=== PATIENT | female | born 1995 | race Caucasian/White ===

== ENCOUNTER 2020-01-14 03:44 | Observation (INO) | payer BC ==
[2020-01-14] MEDS ORDERED: NS 0.9% 1000 ML** 1,000 ML IV ONE (04:00)
[2020-01-14] MEDS ORDERED: Ondansetron INJ* 2 MG/ML VIAL IV ONE (04:00)
[2020-01-14] MEDS ORDERED: Ketorolac INJ* 30 MG/ML 1 ML VIAL IV PUSH ONE (04:00)
--- NOTE | 2020-01-14 04:12 | ED ---
Abdominal Pain/Female - HPI Summary HPI Summary: Patient is a 24 year-old female presenting to [facility] with a chief complaint of RUQ pain initially onset 11 months ago and worsening over the last few days. She reports she began having gallbladder issues after her son was born almost a year ago. Over the course of her pain, she was diagnosed with anxiety attacks and GERD, which she has been placed on medications for without relief of her pain. After it was found that she has gallbladder issues, she has continued to have worsening attacks. She was initially scheduled to have a cholecystectomy on 01/09/2020, but the surgery was canceled due to the pandemic. On 01/12/2020, she went to [facility] and had an ultrasound but was discharged home. She previously had a CT. She returned to the hospital the following day and was admitted for pain control. She left AMA after feeling like she was mistreated, and there was no plan for surgery. This morning, she comes to the ED for worsening pain radiating into the back, nausea, vomiting, and decreased oral intake. She denies any fevers. Pain is rated 8/10 in severity. She has not taken any pain medications for treatment. LNMP: beginning of December 2019. Nonsmoker, rare EtOH, no substance use. Medications reviewed. Allergies noted. Obtained medical records from [place]: Abdominal U/S - Cholelithiasis. - History of Current Complaint Chief Complaint: EDAbdPain Stated Complaint: ABD/FLANK PAIN PER PT Time Seen by Provider: 01/14/20 03:59 Hx Obtained From: Patient Hx Last Menstrual Period: beginning of December 2019 Onset/Duration: Lasting Weeks, Still Present, Worse Since - last few days Timing: Constant Severity Initially: Mild Severity Currently: Severe Pain Intensity: 8 Pain Scale Used: 0-10 Numeric Location: Discrete At: RUQ Radiates: Yes Radiates to: Back Character: Sharp Aggravating Factor(s): Food Alleviating Factor(s): NPO Associated Signs and Symptoms: Positive: Decreased Appetite, Nausea, Vomiting. Negative: Fever Allergies/Adverse Reactions: Allergies Allergy/AdvReac Type Severity Reaction Status Date / Time Penicillins Allergy Unknown Verified 01/14/20 11:08 Reaction Details Home Medications: Home Medications Omeprazole 40 mg PO BID 01/14/20 [History Confirmed 01/14/20] Xanax TAB* 0.25 mg PO TID PRN 01/14/20 [History Confirmed 01/14/20] PMH/Surg Hx/FS Hx/Imm Hx Endocrine/Hematology History: Denies: Hx Diabetes Respiratory History: Denies: Hx Asthma GI History: Reports: Hx Gall Bladder Disease, Hx Gastroesophageal Reflux Disease Neurological History: Reports: Hx Migraine Psychiatric History: Reports: Hx Anxiety - Surgical History Surgical History: None Surgery Procedure, Year, and Place: none Infectious Disease History: No Infectious Disease History: Denies: Traveled Outside the [place] in Last 30 Days - Family History Known Family History: Positive: Renal Disease - kidney cancer, Other - POsitive FMH of hypotension - Social History Alcohol Use: Rare Hx Substance Use: No Substance Use Type: Reports: None Hx Tobacco Use: No Smoking Status (MU): Never Smoked Tobacco - Additional Comments History Additional Comments: GERD, anxiety Review of Systems - ROS Summary Review of Systems Summary: Home Medications Medication Instructions Recorded Confirmed Type Ibuprofen TAB* [Motrin TAB* 800 MG] 800 mg PO Q8H PRN #30 tab 09/28/16 Rx Otc Sinus Tab 2 tab PO ONCE PRN 09/28/16 09/28/16 History Negative: Fever Positive: Abdominal Pain - RUQ, Vomiting, Nausea, Other - decreased oral intake All Other Systems Reviewed And Are Negative: Yes Physical Exam - Summary Physical Exam Summary: General: Well-developed, Well-nourished female. Mildly anxious appearing. No acute distress. HEENT: Normocephalic, Atraumatic. Eyes: Conjuctiva normal, PERRL. Oropharynx: Clear, mucous membranes moist, (-) exudates. Neck: Soft, FROM, (-) lymphadenopathy, (-) thyromegaly, (-) JVD. Cardiovascular: Normal sinus rhythm, (-) murmur. Lungs: Clear to auscultation bilaterally (-) wheezes, (-) rales, (-) rhonchi. Abdomen: Soft, mild RUQ and right lateral tenderness, non-distended, (-) organomegaly, normal bowel sounds. Back: (-) CVA tenderness Extremities: No edema. Skin: Warm, dry, (-) rash. Neuro: Alert and oriented x3, moves all extremities equally. No ataxia. No gait disturbance. No sensory deficit. Normal strength, normal sensation. Psychiatric: Mood normal, affect normal. Triage Information Reviewed: Yes Vital Signs On Initial Exam: Initial Vitals Temp Pulse Resp BP Pulse Ox 98.7 F 83 16 103/62 97 01/14/20 03:45 01/14/20 03:45 01/14/20 03:45 01/14/20 03:45 01/14/20 03:45 Vital Signs Reviewed: Yes Procedures - Sedation Patient Received Moderate/Deep Sedation with Procedure: No Diagnostics - Vital Signs Vital Signs Temp Pulse Resp BP Pulse Ox 01/14/20 03:45 98.7 F 83 16 103/62 97 - Laboratory Result Diagrams: 01/14/20 04:11 01/14/20 04:11 Lab Statement: Any lab studies that have been ordered have been reviewed, and results considered in the medical decision making process. Re-Evaluation - Re-Evaluation First Eval Re-Evaluation Time: 07:35 Comment: Patient is resting comfortably. Ultrasound being done. Patient is hemodyamically stable. Abdominal Pain Fem Course/Dx - Course Course Of Treatment: 24-year-old female presents from home with abdominal pain. Patient states over the last 11 months since she had her son that she has been experiencing gallbladder attacks. She states she's been seen at [place] [facility] numerous times. Has had surgery set up for January 07 but it had to be canceled because of elective surgeries were put on hold at this time due to Covid pandemic. Patient states every time she gets an attack it is worse. She went to [facility] Wednesday morning and then again Wednesday morning. She was hospitalized at that time but states all they did was put on a clear liquid diet and give her every day pain medication. She states her pain is unbearable and she is not able to take it anymore. At home she is taking Tylenol ibuprofen without relief. Also having nausea and vomiting. No fevers or chills. No diarrhea. On physical exam she is afebrile with right upper and right lateral abdominal tenderness. Laboratories have no significant abnormalities. Patient was ordered for a CT abdomen and pelvis. However she states that she had 2 negative CTs done already for this same problem. Patient is signed out at change of shift awaiting ultrasound. Patient received fluids, Zofran, and Toradol in the ED. - Diagnoses Provider Diagnoses: Abdominal pain, RUQ, Cholecystitis Discharge ED - Sign-Out/Discharge Documenting (check all that apply): Sign-Out Patient Signing out patient TO: Aime Monteiro - Patient is a sign-out to Dr. Aime Monteiro MD, at change of shift at 0700 on 01/14/20, pending Abdominal US and disposition. - Discharge Plan Condition: Stable Disposition: ADMITTED TO [facility] - Billing Disposition and Condition Condition: STABLE Disposition: Admitted to [facility] - Attestation Statements Document Initiated by Scribe: Yes Documenting Scribe: Evelyn Perez Provider For Whom Jose is Documenting (Include Credential): Jenna Keen MD Scribe Attestation: IEvelyn, scribed for Jenna Keen MD on 01/14/20 at 2006. Scribe Documentation Reviewed: Yes Provider Attestation: The documentation as recorded by the Evelyn lee accurately reflects the service I personally performed and the decisions made by me, Jenna Keen MD Status of Scribe Document: Viewed
[2020-01-14 04:21] LABS: ABS Eosinophils 0.1 10^3/ul (0-0.6); ABS Lymphocytes 1.1 10^3/ul (1.0-4.8); ABS Monocytes 0.7 10^3/ul (0-0.8); ABS Neutrophils 6.5 10^3/ul (1.5-7.7); Eosinophil % 1.6 %; Hematocrit 40 % (35-47); Hemoglobin 13.4 g/dL (12.0-16.0); Lymphocyte % 12.6 %; Mean Corpuscular HGB Conc 34 g/dL (31-36); Mean Corpuscular Hemoglobin 30 pg (27-31); Mean Corpuscular Volume 88 fL (80-97); Mean Platelet Volume 7.7 fL (7.4-10.4); Platelet Count 225 10^3/uL (150-450); Red Blood Count 4.51 10^6 /uL (3.70-4.87); Red Cell Distribution Width 13 % (10-15); White Blood Count 8.4 10^3/uL (3.5-10.8)
[2020-01-14 04:27] LABS: INR 1.17 (0.82-1.09)
[2020-01-14 04:36] LABS: ALT 10 U/L (7-52); AST 11 U/L (13-39); Albumin/Globulin Ratio 1.3 (1-3); Alkaline Phosphatase 61 U/L (34-104); Amylase 32 U/L (29-103); Anion Gap 5 mmol/L (2-11); BUN/Creatinine Ratio 11.4 (8-20); Blood Urea Nitrogen 8 mg/dL (6-24); C Reactive Protein 63.33 mg/L (<8.01); CO2 Carbon Dioxide 26 mmol/L (22-32); Calcium 8.8 mg/dL (8.6-10.3); Chloride 105 mmol/L (101-111); EGFR African American 124.4 (>60); EGFR Non-African American 102.8 (>60); Globulin 3.1 g/dL (2-4); Glucose 102 mg/dL (70-100); Potassium 3.7 mmol/L (3.5-5.0); Sodium 136 mmol/L (135-145); Total Protein 7.1 g/dL (6.4-8.9)
[2020-01-14 04:42] LABS: HCG Pregnancy < 0.60 mIU/mL
--- NOTE | 2020-01-14 07:18 | ED ---
Progress - Progress Note Progress Note: Patient received as a sign out from Dr. Keen at 0700 shift change pending abd/ pel US and dispo. - Results/Orders Results/Orders: ABDOMEN US IMPRESSION: Cholelithiasis with mild gallbladder wall thickening. Small amount of pericholecystic fluid is noted. The gallbladder is not abnormally distended however. This report was reviewed by the ED physician. Re-Evaluation - Re-Evaluation First Eval Re-Evaluation Time: 07:35 Comment: Patient is resting comfortably. Ultrasound being done. Patient is hemodyamically stable. Course/Dx - Course Course Of Treatment: This patient was signed out to Dr. Keen at shift change. She recommends to follow up the right upper quadrant ultrasound to rule out cholecystitis. RUQ U/S IMPRESSION: Cholelithiasis with mild gallbladder wall thickening. Small amount of pericholecystic fluid is noted. The gallbladder is not abnormally distended. Patient seen and examined with Dr. Sarkar from surgery and she accepted the patient for admission for an acute cholecystitis. Patient is hemodynamically stable, alert and oriented 3. - Diagnoses Provider Diagnoses: Abdominal pain, RUQ, Cholecystitis - Provider Notifications Discussed Care Of Patient With: Emili Sarkar Time Discussed With Above Provider: 09:11 Instructed by Provider To: Other - Patient's case was discussed with Dr. Sarkar, who will see the patient in the ER. After seeing the patient at 1040, Dr. Sarkar recommended admission for cholecystitis. At 1141 Dr. Bessie Owen and Dr. Underwood were in the ER to see the patient and at 1151 confirmed that they will admit the patient. Discharge ED - Sign-Out/Discharge Documenting (check all that apply): Patient Departure - admit - Discharge Plan Condition: Stable Disposition: ADMITTED TO [facility] - Billing Disposition and Condition Condition: STABLE Disposition: Admitted to [facility] - Attestation Statements Document Initiated by Scribe: Yes Documenting Scribe: Maciej Munoz Provider For Whom Jose is Documenting (Include Credential): Aime Monteiro MD Scribe Attestation: Maciej Murrell, scribed for Aime Monteiro MD on 01/14/20 at 1844. Scribe Documentation Reviewed: Yes Provider Attestation: The documentation as recorded by the Maciej lee accurately reflects the service I personally performed and the decisions made by me, Aime Monteiro MD Status of Jose Document: Viewed
--- NOTE | 2020-01-14 10:41 | HP ---
H&P (Free Text) History and Physical: DATE OF ADMISSION: 01/14/20 REASON FOR ADMISSION: Acute cholecystitis PCP: Mary Brambila NP HPI: Ana Downing is a 24 year-old otherwise healthy woman who presents to the ED with abdominal pain. She has been having episodes of right upper quadrant abdominal pain for the past 10 months. There are no inciting factors, but she did feel the pain was less severe when she switched to a bland diet. She has been following a bland diet for about 7 months. She is asymptomatic between episodes, and the pain previously was alleviated with a heating pad. Her abdominal and chest pain were thought to be due to anxiety and GERD. She had been prescribed Xanax and omeprazole which do not help. This current episode started on Thursday 01/11. She has had RUQ abdominal pain radiating to her back and up into her chest. There is associated nausea and vomiting. She has had difficulty keeping down liquids due to pain. She thinks her symptoms might be slightly better compared to Wednesday. She denies fevers. She reports shortness of breath due to pain. The patient was scheduled for lap cholecystectomy in [place] last week, but surgery was cancelled due to the pandemic. She presented to [facility] yesterday. She was admitted but did not feel her symptoms were controlled and was not happy with her care. She came to [facility] early this morning because the pain was not controlled with hydrocodone at home. PMH: None PSH: None Home Medications Medication Instructions Recorded Confirmed Type Omeprazole 40 mg PO BID 01/14/20 01/14/20 History Xanax TAB* 0.25 mg PO TID PRN 01/14/20 01/14/20 History Allergies Penicillins Allergy (Verified 01/14/20 11:08) Unknown Reaction Details PT'S FATHER HAS STRONG ALLERGIC REACTION TO PCN HX FH: Both parents are healthy. No history of bleeding disorders in the family. She had a grandmother with kidney cancer. SH: Patient lives with her mother, grandfather, and infant son. 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 She denies tobacco, alcohol, or recreational drug use. ROS: 10-point review of systems was obtained. Pertinent positives and negatives are in HPI. PHYSICAL EXAM: Temp Pulse Resp BP Pulse Ox 98.7 F 75 16 110/62 98 01/14/20 03:45 01/14/20 11:00 01/14/20 03:45 01/14/20 10:38 01/14/20 11:00 General: NAD, lying on stretcher. Head: Normocephalic and atraumatic Eyes: Pupils equal and no scleral icterus. Mouth: Moist mucous membranes Neck: Supple, trachea midline CV: RRR Respiratory: CTA, no accessory muscle use on room air Abdomen: Soft, nondistended, tenderness to palpation RUQ and RLQ. No guarding or rebound. Extremities: Warm, no pedal edema Skin: Warm and dry. Intact. Neuro: Alert and oriented x3. Moves all extremities equally. Psych: Normal affect. Laboratory Results - last 24 hr 01/14/20 01/14/20 01/14/20 04:11 04:11 04:11 WBC 8.4 RBC 4.51 Hgb 13.4 Hct 40 MCV 88 MCH 30 MCHC 34 RDW 13 Plt Count 225 MPV 7.7 Neut % (Auto) 76.7 Lymph % (Auto) 12.6 [place] % (Auto) 8.9 Eos % (Auto) 1.6 Baso % (Auto) 0.2 Absolute Neuts (auto) 6.5 Absolute Lymphs (auto) 1.1 Absolute Monos (auto) 0.7 Absolute Eos (auto) 0.1 Absolute Basos (auto) 0.0 Absolute Nucleated RBC 0.0 Nucleated RBC % 0.0 INR (Anticoag Therapy) 1.17 H Sodium 136 Potassium 3.7 Chloride 105 Carbon Dioxide 26 Anion Gap 5 BUN 8 Creatinine 0.70 Est GFR ( Amer) 124.4 Est GFR (Non-Af Amer) 102.8 BUN/Creatinine Ratio 11.4 Glucose 102 H Lactic Acid Calcium 8.8 Total Bilirubin 0.60 AST 11 L ALT 10 Alkaline Phosphatase 61 C-Reactive Protein 63.33 H Total Protein 7.1 Albumin 4.0 Globulin 3.1 Albumin/Globulin Ratio 1.3 Amylase 32 Lipase 10 L Beta HCG, Quant < 0.60 01/14/20 04:11 WBC RBC Hgb Hct MCV MCH MCHC RDW Plt Count MPV Neut % (Auto) Lymph % (Auto) [place] % (Auto) Eos % (Auto) Baso % (Auto) Absolute Neuts (auto) Absolute Lymphs (auto) Absolute Monos (auto) Absolute Eos (auto) Absolute Basos (auto) Absolute Nucleated RBC Nucleated RBC % INR (Anticoag Therapy) Sodium Potassium Chloride Carbon Dioxide Anion Gap BUN Creatinine Est GFR ( Amer) Est GFR (Non-Af Amer) BUN/Creatinine Ratio Glucose Lactic Acid 0.6 Calcium Total Bilirubin AST ALT Alkaline Phosphatase C-Reactive Protein Total Protein Albumin Globulin Albumin/Globulin Ratio Amylase Lipase Beta HCG, Quant Abd U/S- Gallstones, small amount of pericholecystic fluid, wall is 5.4 mm. CBD 4 mm. IMPRESSION: 24F with acute cholecystitis. Gallbladder wall is thickened on ultrasound, and CRP is elevated. However, she does not have an elevated white count or fever. Differential includes symptomatic cholelithiasis or biliary colic. It appears that she has not been able to control the symptoms at home despite diet modification and narcotic pain medication. -Admit for observation -Start cipro and flagyl to treat for cholecystitis. -Plan for laparoscopic cholecystectomy tomorrow as add on. I explained to the patient that Dr West may be the surgeon depending on scheduling. -Clear liquids today, NPO and IVF at midnight. -Tylenol, percocet, morphine prn for pain. -DVT ppx: SCDs, activity as tolerated
[2020-01-14] MEDS ORDERED: Acetaminophen TAB* 325 MG PO PRN (10:46)
[2020-01-14] MEDS ORDERED: oxyCODONE/Acetamin 5/325 MG* TAB PO PRN (10:46)
[2020-01-14] MEDS ORDERED: Ondansetron INJ* 2 MG/ML VIAL IV PRN (10:46)
[2020-01-14] MEDS ORDERED: Morphine INJ* 2 MG/ML 1 ML SYRINGE (TWO MG - NEW SYRINGE VERSION) IV PRN (10:54)
[2020-01-14] MEDS: Ciprofloxacin 400MG IVPREMIX(* 400 MG/200 ML BAG IVPB SCH ×2 (12:01→23:37)
[2020-01-14 12:15] LABS: Urine Appearance Turbid; Urine Bilirubin Negative (Negative); Urine Blood 1+ (Negative); Urine Color Yellow; Urine Glucose Negative (Negative); Urine Ketones Negative (Negative); Urine Nitrite Negative (Negative); Urine Protein Negative (Negative); Urine Specific Gravity 1.013 (1.010-1.030); Urine Urobilinogen Negative (Negative)
[2020-01-14 12:17] LABS: Urine Bacteria Absent (Absent); Urine Red Blood Cell 2+(6-10/hpf) (Absent); Urine Squamous Epithelial Cell Present (Absent); Urine White Blood Cell 3+(>20/hpf) (Absent)
[2020-01-14] MEDS: metroNIDAZOLE IV 500 MG/100ML* 500 MG/100 ML BAG IVPB SCH ×2 (13:26→20:49)
[2020-01-15] MEDS: metroNIDAZOLE IV 500 MG/100ML* 500 MG/100 ML BAG IVPB SCH (04:41)
[2020-01-15] MEDS: Lactated Ringers 1000 ML Bag* 1,000 ML IV SCH ×2 (11:03)
[2020-01-15] MEDS: Ciprofloxacin 400MG IVPREMIX(* 400 MG/200 ML BAG IVPB SCH (11:04)
--- NOTE | 2020-01-15 12:08 | PN ---
Progress Note - Progress Note Date of Service: 01/15/20 SOAP: Subjective: Still with some RUQ abd pain No N/V Objective: Temp Pulse Resp BP Pulse Ox 98.2 F 72 20 99/59 100 01/15/20 11:09 01/15/20 11:09 01/15/20 11:09 01/15/20 11:09 01/15/20 11:09 Intake & Output 01/13/20 01/14/20 01/15/20 01/16/20 06:59 06:59 06:59 06:59 Intake Total 1000 1394 980 Output Total 1000 675 Balance 1000 394 305 Weight 140 lb 126 lb 6.4 oz Intake: IV Fluids 1000 215 980 LR 980 NS (0.9%) 15 IVPB 459 ABX - CIPROFLOXACIN 200 ABX - FLAGYL 100 ABX - LEVOFLOXACIN 159 Oral 720 Output: Urine 1000 675 Other: Estimated Void Medium # Voids 1 PEX: Comfortable Lungs are clear Abd is soft and non-distended. Tenderness RUQ without peritoneal irritation. NABS Labs and US reviewed Assessment: Acute calculous cholecystitis Plan: Laparoscopic cholecystectomy today. I have reviewed her history, labs and US and discussed treatment with her. The risks of, but not limited to, of bleeding , infection, abscess, open procedure, injury to peritoneal and retroperitoneal organs, common bile duct injury, sepsis, GA and blood clots were discussed. She gives her consent to proceed.
[2020-01-15] MEDS ORDERED: metroNIDAZOLE IV 500 MG/100ML* 500 MG/100 ML BAG IVPB SCH (12:30)
[2020-01-15] MEDS ORDERED: oxyCODONE TAB* 5 MG TAB PO PRN (12:36)
[2020-01-15] MEDS ORDERED: fentaNYL* 50 MCG/ML 2 ML VIAL (100 MCG VIAL) IV PRN (12:36)
[2020-01-15] MEDS ORDERED: DiMENhydriNATE IV* 50 MG/ML VIAL IV PUSH PRN (12:36)
[2020-01-15] MEDS ORDERED: Naloxone* 0.4 MG/ML 1 ML VIAL IV PRN (12:36)
[2020-01-15] MEDS ORDERED: Bupivacaine 0.25% EPI 200,000* 30 ML SDV ONE (12:55)
[2020-01-15] MEDS ORDERED: Lidocaine 2% PF * 5 ML VIAL ONE (13:13)
[2020-01-15] MEDS ORDERED: Midazolam* 1 MG/ML 2 ML VIAL (2 MG) ONE ×2 (13:13→13:16)
[2020-01-15] MEDS ORDERED: Succinylcholine* 20 MG/ML 10 ML VIAL ONE (13:13)
[2020-01-15] MEDS ORDERED: Propofol* 10 MG/ML 20 ML BTL ONE (13:13)
[2020-01-15] MEDS ORDERED: Rocuronium* 10 MG/ML VIAL ONE ×2 (13:13→14:09)
[2020-01-15] MEDS ORDERED: fentaNYL* 50 MCG/ML 2 ML VIAL (100 MCG VIAL) ONE ×2 (13:14→15:41)
[2020-01-15] MEDS ORDERED: Metoclopramide IV* 5 MG/ML 2 ML VIAL ONE (13:38)
[2020-01-15] MEDS ORDERED: Ketorolac INJ* 30 MG/ML 1 ML VIAL ONE (13:38)
[2020-01-15] MEDS ORDERED: Ondansetron INJ* 2 MG/ML VIAL ONE (13:38)
[2020-01-15] MEDS ORDERED: Dexamethasone IV* 4 MG/ML 1 ML (4 MG) ONE (13:38)
[2020-01-15] MEDS ORDERED: Glycopyrrolate IV* 0.2 MG/ML 1 ML VIAL ONE ×2 (14:52→14:53)
[2020-01-15] MEDS ORDERED: Neostigmine Methylsulfate* 1 MG/ML 10 ML VIAL (1 mg/ml) ONE (14:52)
--- NOTE | 2020-01-15 15:21 | BRIEFOPN ---
Brief Operative/Procedure Note - Operation Details Pre-Op Diagnosis: Acute cholecystitis Post-Op Diagnosis: Acute cholecystitis Procedures: Laparoscopic cholecystectomy Surgeon(s)/Proceduralists: Dr. West. Assist: GEOVANNA Cheek Anesthesia: GETA Estimated Blood Loss: <25cc Findings: As above Specimen(s)/Culture(s) Description: Gallbladder Complications: None
[2020-01-15] MEDS ORDERED: oxyCODONE TAB* 5 MG TAB ONE (15:46)
--- NOTE | 2020-01-15 16:19 | OP ---
DATE OF OPERATION: 01/15/20 - ROOM #333 DATE OF : 89 SURGEON: Kael West MD ASW SPECIALIST: GEOVANNA Davidson ANESTHESIOLOGIST: Dr. Bonilla. ANESTHESIA: General with local. PRE-OP DIAGNOSIS: Acute calculous cholecystitis. POST-OP DIAGNOSIS: Acute calculous cholecystitis. OPERATIVE PROCEDURE: Laparoscopic cholecystectomy. ESTIMATED BLOOD LOSS: Minimal. IV FLUIDS: 1 L of crystalloid. WOUND CLASSIFICATION: 3. COMPLICATIONS: None. DRAINS: None. SPECIMEN: Gallbladder. FINDINGS: Acute calculous cholecystitis with thickened edematous gallbladder wall also with some chronic inflammatory changes as well. It was necessary to decompress the gallbladder off some light bile prior to grasping. BRIEF HISTORY: Ms. Ana Downing is a 24-year-old woman who has had episodes of right upper quadrant abdominal pain intermittently over the past 8 to 10 months. More recently, she has had persistent pain for the past several days. She presented to the emergency room and was noted to have a normal white blood cell with an elevated C-reactive protein, but normal liver transaminases and bilirubin. An ultrasound showed mild thickening of the gallbladder wall with some pericholecystic fluid and no ductal dilatation as well as gallstones. On physical exam, she had right upper quadrant abdominal pain persisted and she was now to undergo the laparoscopic cholecystectomy for acute calculous cholecystitis. The procedure was discussed with the patient and the risks of, but not limited to, bleeding, infection, intraabdominal abscess formation, injury to peritoneal and retroperitoneal structures, common bile duct injury, bile leak, abscess formation, the risks of general anesthesia and blood clots were all explained. DESCRIPTION OF PROCEDURE: Written informed consent was obtained, the abdomen was marked with indelible ink, and preoperative antibiotics were administered. The patient was taken to the operating room and placed in the supine position. Sequential compression devices were placed on the lower extremities as well as a warming blanket on the upper body. The abdomen was prepped and draped in the usual sterile fashion. Time-out verification was completed. A small transverse incision was made just below the umbilicus at the midline and the peritoneal cavity was entered under direct vision. The 12 mm blunt port was inserted and the abdomen was insufflated to 12 mmHg. Under direct vision, an 11 mm epigastric port was placed and two 5 mm ports were placed in the right side of the abdominal wall. Insufflation was performed using the smoke evacuator system, which was the contained circulatory flow system and no carbon dioxide was manually vented through any of the ports throughout the case including decompression at the end. Gallbladder was identified. It was thick-walled, edematous, and inflamed consistent with acute calculous cholecystitis. We were unable to grasp the gallbladder towards its tip to elevate this and an 18-gauge puncture needle was used and approximately 30 cc of light bile was removed consistent with hydrops. This allowed us to grasp this and elevate the gallbladder up over the liver bed. The thickened infundibulum was identified and the thickened peritoneum, which was quite edematous and somewhat adherent. It was taken down along the medial and lateral aspect of the gallbladder. It was obvious that there was both acute on chronic inflammation and this was somewhat tedious dissection, but I was able to identify the cystic duct and cystic artery as they entered the gallbladder. Using the critical view technique, I took a considerable portion of the inferior part of the gallbladder through the edematous inflamed tissue off the liver bed to assure myself of these two structures. The cystic artery was then doubly clipped and divided. The cystic artery had no stone. The cystic duct was slightly thickened, but did appear to have stones within it and a 10-mm clip senior systems engineer was used to triply clip this and divide the cystic duct at its junction with the gallbladder. The gallbladder was then removed from the liver bed with cautery. This was somewhat tedious as well due to the acute on chronic inflammation. Once this was complete, the gallbladder was placed in an Endo Catch bag. The right upper quadrant was irrigated thoroughly and hemostasis was assured. The gallbladder was then removed from the umbilical port. No drains were placed. The carbon dioxide intraabdominally was then allowed to recede through the smoke evacuator system and the ports were removed. The umbilical fascia was closed with interrupted 0 Vicryl suture. The skin at all 4 incisions was closed with a subcuticular 4-0 Monocryl suture. Steri-Strips were applied. The patient tolerated the procedure well and was taken to the recovery room in stable condition. [id number]/[facility] #: [id number] [facility]STCHESTERTalita
[2020-01-15] MEDS ORDERED: DiMENhydriNATE IV* 50 MG/ML VIAL ONE (16:46)
[2020-01-15 17:02] VITALS: BP 118/73
--- NOTE | 2020-01-17 10:15 | DS ---
Admit date: 01/14/2020 Discharge date: 01/15/2020 Admit diagnosis: Acute cholecystitis Discharge diagnosis: Acute cholecystitis Procedure performed: Laparoscopic cholecystectomy PEX General: Alert, in NAD. Integumentary: No rashes, jaundice, petechia. HEENT: Oropharynx clear. PERRLA. Heart: RRR, no MRG. Lungs: CTAB, no WRR. ABD: Soft, non distended. Incisions with minimal tenderness, C/D/I. No guarding or rebound tenderness. Extremities: No edema. Distal pulses intact bilaterally. Calves soft and nontender. Labs: Unremarkable. Hospital course: Presented to ED for abdominal pain with associated nasuea and vomiting. She was previously diagnosed with cholecystitis and had been scheduled for a lap cholecystectomy in [place], which ended up being cancelled due to the pandemic. She was admitted for to [facility] for observation. The following day, she underwent a laparoscopic cholecystectomy which was tolerated well. After recovering from general anesthesia appropriately, she was discharged from the PACU. Instructions were given to the patient regarding diet, meds, activity, and follow up. All questions were answered. Discharged home in stable condition.
== END 2020-01-15 17:02 | disposition home or self-care (01) ==
LOC: ED 03:44 → SSU 10:46
PROVIDERS: ADMIT Internal Medicine; ATTEND Surgery
DX: K80.00 Calculus of gallbladder with acute cholecystitis without obstruction (principal); R10.11 Right upper quadrant pain; R11.2 Nausea with vomiting, unspecified; K21.9 Gastro-esophageal reflux disease without esophagitis; Z88.0 Allergy status to penicillin; Z80.51 Family history of malignant neoplasm of kidney
CPT/HCPCS: 36415; 76705; 80053; 81003; 81015; 81025; 82150; 83605; 83690; 84702; 85025; 85610; 86140; 87086; 88304; 96361; 96365; 96366; 96375; 99284; A9270-GY; G0378; J0330; J0744; J1100; J1240; J1885; J2250; J2405; J2704; J2710; J2765; J3010